=== PATIENT | male | born 1945 | race Caucasian/White ===

== ENCOUNTER 2018-05-20 17:02 | Inpatient (IN) | payer MEDICARE ==
[~2018-05-20] VITALS: Ht 177.8 cm; Wt 114.3 kg
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
--- NOTE | ~2018-05-20 | PR ---
[place], [place] PROGRESS NOTE [id number] UN[facility] #: [id number] ROOM: 311 DOCTOR: CADY PHELPS MD BIRTHDATE: [birth year] DOS: 05/24/2018 SUBJECTIVE: The patient is seen and spoke with the staff. Per staff, the patient is doing well. No behavior problems or issues. Compliant with his medication. The patient was pleasant and cooperative. He was in the day area. He got up to talk with me. He reports doing well and feeling better. He said that he is taking his medication and did not have any side effect. He reports good sleep and appetite. MENTAL STATUS EXAMINATION: The patient was pleasant and cooperative. Described his mood as "better." Affect was mood congruent. Thought process goal directed. No flight of ideas, loosening of association. He denied auditory or visual hallucination. No delusion or paranoia noted. He denies suicidal ideation, intent or plan. He also denied any homicidal ideation, intent or plan. PLAN: 1. Continue current medication and care. 2. Continue redirection. 3. Supportive care. CADY PHELPS MD CM:PNTRANS [phone] CADY PHELPS MD 05/25/18 0149 interface
--- NOTE | ~2018-05-20 | PR ---
[place], [place] PROGRESS NOTE [facility] [id number] UNIT #: [id number] ROOM: 311 DOCTOR: CADY PHELPS MD BIRTHDATE: [birth year] DOS: 05/23/2018 SUBJECTIVE: The patient was seen and spoke with the staff. Per staff, the patient still had some depression, but improved significantly. He is compliant with his medication and did not have any side effect from the medication. The patient was pleasant and cooperative. He was in the day area watching TV. He reports doing good. He reports good sleep and appetite. Denied any side effect from the medication. MENTAL STATUS EXAMINATION: The patient was pleasant and cooperative. Described his mood as "okay." Affect was euthymic. Thought process goal directed. No flight of ideas, loosening of association. He denied auditory or visual hallucination. No delusion or paranoia noted. He denied suicidal ideation, intent or plan. He also denied any homicidal ideation, intent or plan. PLAN: 1. Continue current medication and care. 2. Encourage activities in groups. 3. Supportive care. CADY PHELPS MD CM:PNTRANS [phone] CADY PHELPS MD 05/24/18 0448 interface
--- NOTE | ~2018-05-20 | PR ---
[place], [place] PROGRESS NOTE NAME: TUNDE WADE [facility] #: [id number] UNIT #: [id number] ROOM: 311 DOCTOR: PHD FATIMAH DE LA ROSA BIRTHDATE: [birth year] DOS: 05/21/2018 HISTORY OF PRESENT ILLNESS: The patient is a 72-year-old male referred by Dr. Haines for individual psychotherapy. He is presently on the [facility] at [facility]. He was admitted voluntarily due to suicidal ideation with plan. The patient reports that he feels "much better" after spending "14 hours in the ER" and talking to staff on the unit. Mood was depressed and affect was blunted. He firmly denied current suicidal and homicidal ideation. He appeared to be guarded with respect to his emotional status and to minimize the events leading to his hospitalization. Discussed his health concerns and relationship with his . Utilize CBT motivational interviewing and supportive therapy interventions. The patient appeared to benefit. The patient stated he is "not against" following up with outpatient counseling, but indicated that attending appointments would be difficult given his vision issues and inability to drive. PLAN: I will continue to follow the patient as needed while he is on the unit. He would likely benefit from participating in outpatient counseling as well upon discharge, but he did not demonstrate much interest. Thank you very much for this consult. Dai De La Rosa, PhD CM:BESSIE [phone] PHD FATIMAH DE LA ROSA 05/22/18 0518 interface
[2018-05-20] MEDS ORDERED: ADVIL200 MG PO (19:49)
[2018-05-20] MEDS ORDERED: COREG12.5 M1 PO (19:51)
[2018-05-20] MEDS ORDERED: ASPIRIN ADULT L81 M1 PO (19:51)
[2018-05-20] MEDS ORDERED: LASIX20 MG PO (19:52)
[2018-05-20] MEDS ORDERED: RANITIDINE HCL150 M1 PO (19:53)
[2018-05-20] MEDS ORDERED: COMPETE1 EACH PO (19:55)
[2018-05-20] MEDS ORDERED: K-TAB10 MEQ PO (19:56)
[2018-05-20] MEDS ORDERED: AMARYL4 MG PO (19:57)
[2018-05-20] MEDS ORDERED: ZOCOR20 MG PO (19:57)
[2018-05-20] MEDS ORDERED: SYNTHROID,LEVO75 MCG PO (19:58)
[2018-05-20] MEDS ORDERED: GLUCOPHAGE1000 MG PO (19:59)
[2018-05-20] MEDS ORDERED: PROAIR HFA8.5 GM INH (20:00)
[2018-05-20] MEDS ORDERED: FLONASE ALLERG9.9 ML NAS (20:02)
[2018-05-20] MEDS ORDERED: VITAMIN D5000 UNI1 PO (20:04)
[2018-05-20] MEDS ORDERED: ZESTORETIC 20-1 EACH PO (20:05)
[2018-05-20] MEDS ORDERED: FISH OIL EC 1,1 EAC1 PO (20:06)
[2018-05-20] MEDS ORDERED: PLAVIX75 M1 PO (20:07)
[2018-05-20 20:38] VITALS: BP 126/76
[2018-05-20] MEDS ORDERED: BIOTENE ORALBAL42 G1 NAS (21:55)
[2018-05-20] MEDS ORDERED: OXYGEN NAS (21:56)
[2018-05-21 06:55] LABS: BASO # 0.1 10*3/uL (0.0-0.1); BASO % 0.7 % (0.0-1.0); EOS # 0.2 10*3/uL (0.0-0.4); HEMATOCRIT 44.5 % (42.0-52.0); HEMOGLOBIN 14.1 g/dl (14.0-18.0); LYMPH # 3.1 10*3/uL (1.3-4.4); LYMPH % 34.4 % (27.0-41.0); MEAN CELL VOLUME 94.1 fl (80.0-94.0); MEAN CORPUSCULAR HGB 29.8 pg (27.0-31.0); MEAN CORPUSCULAR HGB CONC 31.7 g/dl (33.0-37.0); MEAN PLATELET VOLUME 10.7 fl (9.6-12.3); MONO # 0.8 10*3/uL (0.1-1.0); MONO % 8.5 % (3.0-9.0); NEUT # 4.9 10*3/uL (2.3-7.9); NEUT % 54.2 % (47.0-73.0); PLATELET COUNT AUTOMATED 264 10*3/uL (130-400); RED BLOOD COUNT 4.73 10*6/uL (4.50-5.90); WHITE BLOOD COUNT 9.1 10*3/uL (4.8-10.8)
[2018-05-21 07:08] LABS: ALBUMIN 3.7 gm/dl (3.1-4.5); ALKALINE PHOSPHATASE 43 U/L (45-117); BUN 25 mg/dl (7-24); CHLORIDE 101 mmol/L (98-107); CHOLESTEROL 170 mg/dL (<200); CREATININE 1.15 mg/dL (0.70-1.30); POTASSIUM 3.8 mmol/L (3.5-5.1); SGOT/AST 16 IU/L (3-35); SGPT/ALT 27 U/L (12-78); SODIUM 140 mmol/L (136-145); TOTAL PROTEIN 7.2 gm/dL (6.4-8.2); TRIGLYCERIDES 195 mg/dl (<150); VLDL CHOLESTEROL 39 mg/dL (6-40)
[2018-05-21 07:10] LABS: HDL CHOLESTEROL 42 mg/dl (40-60); LDL CHOLESTEROL 89 mg/dL (9-159)
[2018-05-21 07:11] VITALS: BP 137/79
[2018-05-21 08:03] LABS: VITAMIN D, 25-HYDROXY 47.5 ng/mL (30-100)
[2018-05-21 10:56] LABS: BILIRUBIN NEGATIVE (NEGATIVE); BLOOD NEGATIVE (NEGATIVE); CLARITY SL CLOUDY (CLEAR); COLOR YELLOW (YELLOW); GLUCOSE NEGATIVE (NEGATIVE); KETONE NEGATIVE (NEGATIVE); LEUKO ESTERASE NEGATIVE (NEGATIVE); NITRITE NEGATIVE (NEGATIVE); UROBILINOGEN 0.2 E.U./dl (0.2-1.0)
[2018-05-21 11:29] LABS: WBC 0-2 wbc/hpf (0-5)
[2018-05-21 18:07] VITALS: BP 104/50
[2018-05-21 18:39] VITALS: BP 104/55
[2018-05-22 08:07] VITALS: BP 132/82
[2018-05-22 19:05] VITALS: BP 130/75
[2018-05-23 08:05] VITALS: BP 120/78
[2018-05-23 20:12] VITALS: BP 111/76
[2018-05-23 21:40] VITALS: BP 116/64
[2018-05-24 07:20] VITALS: BP 98/64
[2018-05-24 17:06] VITALS: BP 117/70
[2018-05-24 19:19] VITALS: BP 126/79
[2018-05-25 06:37] VITALS: BP 128/82
[2018-05-25] MEDS ORDERED: QUETIAPINE FUMA50 M1 PO (09:39)
[2018-05-25] MEDS ORDERED: QUETIAPINE FUM100 M3 PO (09:39)
[2018-05-25] MEDS ORDERED: VITAMIN D5000 UNI1 PO (09:39)
== END 2018-05-25 13:10 | disposition home or self-care (01) | DRG 885 ==
LOC: 3N 17:02
PROVIDERS: Psychiatry & Neurology Psychiatry
DX: F33.2 Major depressive disorder, recurrent severe without psychotic features (principal); R45.851 Suicidal ideations; I13.0 Hypertensive heart and chronic kidney disease with heart failure and stage 1 through stage 4 chronic kidney disease, or unspecified chronic kidney disease; J45.20 Mild intermittent asthma, uncomplicated; H54.8 Legal blindness, as defined in USA; I50.9 Heart failure, unspecified; F43.10 Post-traumatic stress disorder, unspecified; J44.9 Chronic obstructive pulmonary disease, unspecified; I25.10 Atherosclerotic heart disease of native coronary artery without angina pectoris; K21.9 Gastro-esophageal reflux disease without esophagitis; E78.5 Hyperlipidemia, unspecified; E03.9 Hypothyroidism, unspecified; E66.01 Morbid (severe) obesity due to excess calories; E78.00 Pure hypercholesterolemia, unspecified; H35.3232 Exudative age-related macular degeneration, bilateral, with inactive choroidal neovascularization; E11.22 Type 2 diabetes mellitus with diabetic chronic kidney disease; N18.2 Chronic kidney disease, stage 2 (mild); J30.2 Other seasonal allergic rhinitis; E55.9 Vitamin D deficiency, unspecified; G47.30 Sleep apnea, unspecified; R00.1 Bradycardia, unspecified; R26.2 Difficulty in walking, not elsewhere classified; Z86.73 Personal history of transient ischemic attack (TIA), and cerebral infarction without residual deficits; Z85.46 Personal history of malignant neoplasm of prostate; Z83.3 Family history of diabetes mellitus; Z82.49 Family history of ischemic heart disease and other diseases of the circulatory system; Z95.1 Presence of aortocoronary bypass graft; Z80.0 Family history of malignant neoplasm of digestive organs; Z79.899 Other long term (current) drug therapy; Z79.82 Long term (current) use of aspirin; Z91.041 Radiographic dye allergy status; Z68.36 Body mass index [BMI] 36.0-36.9, adult